=== PATIENT | female | born 1970 | race Caucasian/White ===

== ENCOUNTER → 2018-04-11 | Outpatient (CLI) | payer OTHER ==
[~2018-04-11] MED LIST: EFFEXOR 5050 MG/1 T1 PO; GABAPENTIN 100100 MG PO; KEPPRA 500 MG500 MG PO; TEGRETOL XR100 MG PO
--- NOTE | ~2018-04-11 | EEG ---
[address] [address] EEG STUDY REPORT Name: JOSHUA BARR Room: [facility]#: [id number] Admission: 04/11/18 Attend Phys: Jovana Dominguez Discharge: Date of : 72 Report #: [id number] THIS REPORT FOR: //name// CC: CRISTA Handvan Moss DATE OF SERVICE: 04/11/2018 This patient is being evaluated for syncope. TECHNIQUE: EEG was done by placing the electrode by standard 10-20 system of electrode placement. Both referential and sequential montages were used for recording. Background activity in this patient's EEG is about 9 Hz and 30 microvolt. This is a symmetrical activity. Photic stimulation is unremarkable. This patient became drowsy, that is associated with bilateral slowing and vertex sharp waves. Throughout the record, no active epileptiform activity was noticed. IMPRESSION: This patient's EEG is within normal limit. Thank you very much for this referral. By: [id number] Reed MD /nt
== END ==
LOC: M.CRD 09:33
DX: R55 Syncope and collapse (principal); Z86.69 Personal history of other diseases of the nervous system and sense organs

== ENCOUNTER 2018-07-25 17:19 | Emergency (ER) | payer OTHER ==
[~2018-07-25] VITALS: Ht 162.6 cm; Wt 81.7 kg
[2018-07-25] MEDS ORDERED: HYDROCODON-ACE1 EAC7 PO ×2 (17:39)
[2018-07-25] MEDS ORDERED: IRON325 PO (17:39)
[2018-07-25] MEDS ORDERED: FLEXERIL PO (18:47)
[2018-07-25 19:29] VITALS: BP 120/62
== END 2018-07-25 19:30 | disposition home or self-care (01) ==
LOC: M.ERS 17:19
DX: M54.42 Lumbago with sciatica, left side (principal); Z86.2 Personal history of diseases of the blood and blood-forming organs and certain disorders involving the immune mechanism

== ENCOUNTER 2018-07-27 04:22 | Emergency (ER) | payer OTHER ==
[~2018-07-27] VITALS: Ht 157.5 cm; Wt 80.3 kg
[~2018-07-27 04:22] MED LIST changes: +FLEXERIL PO; +HYDROCODON-ACE1 EAC7 PO; +IRON325 PO
[2018-07-27] MEDS ORDERED: PERCOCET PO (04:31)
[2018-07-27 05:24] VITALS: BP 124/61
== END 2018-07-27 05:24 | disposition home or self-care (01) ==
LOC: M.ERS 04:22
DX: G89.29 Other chronic pain (principal); M54.5 Low back pain